=== PATIENT | female | born 1965 | race Caucasian/White ===

== ENCOUNTER 2022-02-13 12:50 | Emergency (ER) | payer BC ==
[2022-02-13 13:26] VITALS: BP 148/90; PULSE 86; RESP 16; TEMP 97.4; BMI 33.6
[2022-02-13] MEDS ORDERED: ONDANSETRON 4 MG/2 ML VIAL IVPUSH ONE (13:44)
[2022-02-13] MEDS ORDERED: SODIUM CHLORIDE 0.9% 1000 ML INFUS.BAG IV ONE (13:44)
[2022-02-13] MEDS ORDERED: ONDANSETRON 4 MG/2 ML VIAL ONE (14:02)
[2022-02-13 14:23] LABS: HEMATOCRIT 41.8 % (32.4-45.2); HEMOGLOBIN 13.8 G/dL (10.7-15.3); MCH 28.8 pg (25.7-33.7); MCHC 33.1 g/dl (32.0-36.0); MEAN CELL VOLUME 86.8 fl (80-96); MEAN PLT VOLUME 8.6 fl (7.5-11.1); RBC 4.81 10^6/uL (3.60-5.2); RDW 15.2 % (11.6-15.6); WHITE BLOOD COUNT 16.5 10^3/uL (4.0-10.8)
[2022-02-13 14:41] LABS: ALBUMIN 4.2 g/dl (3.4-5.0); BILIRUBIN,TOTAL 0.9 mg/dl (0.2-1); CALCIUM 9.2 mg/dl (8.5-10); CREATININE 0.7 mg/dl (0.55-1.3); TOT PROT 7.7 g/dl (6.4-8.2)
[2022-02-13] MEDS ORDERED: METOCLOPRAMIDE HCL INJECTION 10 MG/2 ML VIAL IVPUSH ONE (15:04)
[2022-02-13 15:16] LABS: PLATELET ESTIMATE ADEQUATE
[2022-02-13] MEDS ORDERED: METOCLOPRAMIDE HCL INJECTION 10 MG/2 ML VIAL ONE ×2 (15:23→15:41)
== END 2022-02-13 16:49 | disposition home or self-care (01) ==
LOC: FER 12:50
PROC: 3E033NZ Introduction of Analgesics, Hypnotics, Sedatives into Peripheral Vein, Percutaneous Approach (ICD-10-PCS; principal; 2022-02-13)
PROC: 3E033GC Introduction of Other Therapeutic Substance into Peripheral Vein, Percutaneous Approach (ICD-10-PCS; 2022-02-13)
DX: T88.7XXA Unspecified adverse effect of drug or medicament, initial encounter (principal)
CPT/HCPCS: 0241U-QW; 36415; 80053; 85027; 93005; 99284-25

== ENCOUNTER 2025-01-13 16:43 | Emergency (ER) | payer BC ==
[2025-01-13 16:48] VITALS: BP 156/90; PULSE 80; RESP 15; TEMP 98.2; BMI 34.5
== END 2025-01-13 17:46 | disposition home or self-care (01) ==
LOC: FER 16:43
DX: R09.89 Other specified symptoms and signs involving the circulatory and respiratory systems (principal)
CPT/HCPCS: 93005; 99283-25